=== PATIENT | female | born 1960 | race Two or more races ===

== ENCOUNTER 2020-06-06 12:53 | Outpatient (CLI) | payer MEDICAID ==
[~2020-06-06] VITALS: Ht 162.6 cm; Wt 65.8 kg
[2020-06-07] MEDS ORDERED: ASPIRIN EC81 MG ORAL (14:03)
[2020-06-07] MEDS ORDERED: LAMICTAL100 MG ORAL (14:03)
[2020-06-07] MEDS ORDERED: PREVACID30 MG ORAL (14:03)
[2020-06-07] MEDS ORDERED: NORVASC5 MG ORAL (14:03)
[2020-06-07] MEDS ORDERED: SIMVASTATIN10 MG ORAL (14:03)
--- NOTE | 2020-06-07 15:59 | Consultation ---
DATE OF CONSULTATION: 06/06/2020 CONSULTING PHYSICIAN: Hector Croft MD Patient was referred for evaluation of constipation. PAST MEDICAL HISTORY: 1. TIA. 2. GERD. 3. Colonic polyps. 4. Hypertension. 5. Hypercholesterolemia. 6. Sleep apnea. 7. Hiatal hernia. PAST SURGICAL HISTORY: Tonsillectomy and neck surgery. MEDICATIONS: Lamictal, Prevacid, aspirin, Norvasc, simvastatin. FAMILY HISTORY: Noncontributory. SOCIAL HISTORY: Patient is a social drinker. Denies any tobacco abuse. ALLERGIES: No known drug allergies. REVIEW OF SYSTEMS: Positive for constipation, burping, bloating, decreased appetite, dysphagia. PHYSICAL EXAMINATION: VITAL SIGNS: Temperature 95.3. HEENT: Normocephalic, atraumatic. Sclerae anicteric. NECK: Supple. No evidence of obvious lymphadenopathy. CARDIOVASCULAR: Regular rate and rhythm. Plus S1 and S2. LUNGS: Clear to auscultation bilaterally. ABDOMEN: Positive bowel sounds. Soft and nontender. No rebound. No guarding. No peritoneal sign. EXTREMITIES: No cyanosis. No clubbing. No edema. ASSESSMENT AND PLAN: This is a 59-year-old female with past medical history of colonic polyps, now with recent diagnosis of new-onset constipation. Also with significant amount of burping and complained of dysphagia. Patient will need an endoscopy and colonoscopy. Patient was given instructions for both procedures. Risks and benefits were explained to her. She will be scheduled when the authorization is obtained. Hector Croft M.D. DR: LEAH JOB#: [id number] CC:
== END 2020-06-06 14:53 | disposition home or self-care (01) ==
LOC: PAN 12:53
DX: K59.00 Constipation, unspecified (principal); K21.9 Gastro-esophageal reflux disease without esophagitis; Z86.010 Personal history of colon polyps; R13.10 Dysphagia, unspecified; Z86.73 Personal history of transient ischemic attack (TIA), and cerebral infarction without residual deficits; I10 Essential (primary) hypertension; E78.00 Pure hypercholesterolemia, unspecified; G47.30 Sleep apnea, unspecified; Z79.899 Other long term (current) drug therapy; R14.0 Abdominal distension (gaseous)
CPT/HCPCS: G0463

== ENCOUNTER 2020-08-01 13:49 | Outpatient (CLI) | payer MEDICAID ==
[~2020-08-01 13:49] MED LIST: ASPIRIN EC81 MG ORAL; LAMICTAL100 MG ORAL; NORVASC5 MG ORAL; PREVACID30 MG ORAL; SIMVASTATIN10 MG ORAL
--- NOTE | 2020-08-07 15:59 | General Progress Note ---
Subjective ROS Limited/Unobtainable: Yes Allergies: Coded Allergies: No Known Allergies (Unverified , 06/07/20) Objective General Appearance: alert EENT: normal ENT inspection Neck: supple Cardiovascular: normal rate Respiratory/Chest: lungs clear Abdomen: normal bowel sounds, non tender, soft Extremities: non-tender Assessment/Plan Assessment/Plan: s/p EGd and colonoscopy gastritis one colon polyp repeat colon in 5 years add baclofen Hector Croft MD Aug 07, 2020 15:58
== END 2020-08-01 15:49 | disposition home or self-care (01) ==
LOC: PAN 13:49
DX: K29.70 Gastritis, unspecified, without bleeding (principal); K63.5 Polyp of colon
CPT/HCPCS: 99212